=== PATIENT | male | born 1990 | race Two or more races ===

== ENCOUNTER → 2019-09-25 | Emergency (ER) | payer OTHER ==
[~2019-09-25] VITALS: Ht 170.2 cm; Wt 61.2 kg
[~2019-09-25] MED LIST: DUI500 PO; KETO10TA2 PO
== END | disposition home or self-care (01) ==
LOC: ER 00:52
DX: S01.521A Laceration with foreign body of lip, initial encounter (principal); W18.09XA Striking against other object with subsequent fall, initial encounter; Y93.89 Activity, other specified; Y92.89 Other specified places as the place of occurrence of the external cause; Y99.8 Other external cause status